=== PATIENT | female | born 1955 | race Caucasian/White ===

== ENCOUNTER → 2017-12-31 | Outpatient (CLI) | payer OTHER | LOC: MAMMO 07:55 | PROVIDERS: ATTEND Specialist | DX: Z12.31 Encounter for screening mammogram for malignant neoplasm of breast (principal) | CPT/HCPCS: 77067 ==

== ENCOUNTER → 2019-01-13 | Outpatient (CLI) | payer BC ==
--- NOTE | 2019-01-17 20:40 | Myoview Stress Test ---
DATE OF STUDY: 01/13/2019 09:14:00 Stress Test - Treadmill ONLY The patient was stressed using a standard Natanael treadmill protocol. Rest and stress Myoview imaging was obtained. Resting heart rate 87 beats and resting blood pressure 132/71. The patient exercised for 3 minutes and 51 seconds achieving 7 METs. Maximum heart rate 144 beats per minute corresponding 91% of predicted maximum blood pressure of 178/96. No EKG changes. No chest pain. Nuclear imaging and resting stress is normal. Normal contractility of the left ventricle. CONCLUSIONS: 1. Normal EKG hemodynamic and clinical treadmill stress test. 2. Normal myocardial perfusion study without evidence for ischemia or infarction. 3. Left ventricle ejection fraction is 65%. MD CAROLINA Thompson/MODL /[id number]
== END ==
LOC: NM 09:02
PROVIDERS: ATTEND Internal Medicine Interventional Cardiology
DX: I20.8 Other forms of angina pectoris (principal)
CPT/HCPCS: 78452; 93017; A9502

== ENCOUNTER → 2020-04-26 | Outpatient (CLI) | payer BC ==
--- NOTE | 2020-04-26 16:44 | Diagnostic Imaging Report ---
Bone Mineral Density. Clinical History:Osteoporosis Screening Comparison: None Findings: Bone Mineral Density Measurement (BMD) - Lumbar Spine: 1.417 gm/cm2 Left Femoral Neck: 1.033 gm/cm2 Standard Deviation as compared to the young adult population (T -score)- Lumbar Spine: 3.4 Left Femoral Neck: 0.7 Standard Deviation as compared to the age matched controls (Z-score)- Lumbar Spine: 5.0 Left Femoral Neck: 1.8 IMPRESSION: Normal bone mineral density of the spine and left femur. Diagnostic criteria (World Health Organization)- Normal: BMD measurement less than one standard deviation from young adult population Osteopenia: BMD measurement between 1 and 2.5 standard deviations below Osteoporosis: BMD measurement greater than 2.5 standard deviations below Severe osteoporosis: Osteoporosis and one or more fragility fractures Signed by: Kunal Stern MD on 04/26/2020 4:41 PM
== END ==
LOC: MAMMO 09:01
PROVIDERS: ATTEND Family Medicine
DX: Z12.31 Encounter for screening mammogram for malignant neoplasm of breast (principal); M89.9 Disorder of bone, unspecified
CPT/HCPCS: 77067; 77080

== ENCOUNTER → 2021-03-10 | Outpatient (CLI) | payer OTHER | LOC: MRI 08:40 | PROVIDERS: ATTEND Chiropractor | DX: M54.16 Radiculopathy, lumbar region (principal); S33.5XXA Sprain of ligaments of lumbar spine, initial encounter | CPT/HCPCS: 72148 ==

== ENCOUNTER → 2021-04-11 | Outpatient (CLI) | payer OTHER ==
[~2021-04-11] MED LIST: COVID-19 VAC,AD26(JANSSEN)/PF 2.5 ML VIAL IM ONE
== END ==
LOC: VACCPMC 14:31
DX: Z23 Encounter for immunization (principal); Z20.822 Contact with and (suspected) exposure to COVID-19
CPT/HCPCS: 91303